=== PATIENT | female | born 1975 | race Two or more races ===

== ENCOUNTER 2025-02-28 19:39 | Emergency (ER) | payer OTHER ==
[~2025-02-28] VITALS: Ht 157.5 cm; Wt 68.0 kg
[2025-02-28] MEDS ORDERED: TAPAZOLE5 MG (19:53)
[2025-02-28] MEDS ORDERED: KETOROLAC TROMETHAMINE 30 MG VIAL IM STA (22:23)
[2025-02-28 23:39] LABS: BASO % 0.5 % (0.1-1.2); EOS # 0.17 (0.04-0.54); EOS % 2.7 % (0.7-7.0); LYMPH # 2.17 (1.18-3.74); LYMPH % 34.2 % (19.3-53.1); MEAN PLATELET VOLUME 9.10 fl (9.4-12.4); MONO # 0.59 (0.24-0.82); MONO % 9.3 % (4.7-12.5); NEUT # 3.38 (1.56-6.13); NEUT % 53.1 % (34.0-71.1); RED CELL DISTRIBUTION WIDTH 12.8 % (11.6-14.4)
[2025-03-01] LABS: ALT/SGPT 32.0 U/L (12-78); AST/SGOT 26.0 U/L (15-37); BILIRUBIN TOTAL 0.41 mg/dL (0.3-1.2); BUN CREA RATIO 17.0 (7.0-25.0); CREATININE SERUM 0.69 mg/dL (0.55-1.02); GFR 90.43; GLOBULINA 2.7 G/DL (2.4-3.5); GLUCOSE FASTING 90.0 mg/dL (65-100); OSMOLALITY SERUM 286.0 MOSM/KG (275-295)
[2025-03-01] MEDS ORDERED: ZANAFLEX4 MG PO (00:08)
[2025-03-01] MEDS ORDERED: DICLOFENAC POTA50 MG PO (00:08)
== END 2025-03-01 00:23 | disposition home or self-care (01) ==
LOC: ER 19:39
PROVIDERS: General Practice
DX: M94.0 Chondrocostal junction syndrome [Tietze] (principal); E05.80 Other thyrotoxicosis without thyrotoxic crisis or storm